=== PATIENT | female | born 1970 | race Caucasian/White ===

== ENCOUNTER → 2019-09-25 13:38 | Outpatient (BNVA) | payer MEDICARE, SELFPAY | PROVIDERS: Family Provider Nurse Practitioner Family; PCP Nurse Practitioner Family; Visit Provider Nurse Practitioner | DX: M54.2 Cervicalgia (principal); M25.511 Pain in right shoulder; M25.512 Pain in left shoulder; F17.210 Nicotine dependence, cigarettes, uncomplicated; Z79.891 Long term (current) use of opiate analgesic | CPT/HCPCS: 99213; 99214 ==

== ENCOUNTER → 2020-01-30 12:50 | Outpatient (BNVA) | payer MEDICARE, SELFPAY | PROVIDERS: Family Provider Nurse Practitioner Family; PCP Nurse Practitioner Family; Visit Provider Nurse Practitioner | DX: G89.29 Other chronic pain (principal); M54.2 Cervicalgia; M25.511 Pain in right shoulder; B02.9 Zoster without complications; F17.210 Nicotine dependence, cigarettes, uncomplicated; Z79.891 Long term (current) use of opiate analgesic | CPT/HCPCS: 99213; 99214 ==

== ENCOUNTER → 2020-02-19 14:24 | Outpatient (BNVA) | payer MEDICARE, SELFPAY | PROVIDERS: Family Provider Nurse Practitioner Family; PCP Nurse Practitioner Family; Referring Provider Nurse Practitioner Family; Visit Provider Orthopaedic Surgery | DX: M25.562 Pain in left knee (principal) | CPT/HCPCS: 73560; 73565 ==

== ENCOUNTER 2020-03-13 10:53 | Outpatient (CLI) | payer MEDICARE, SELFPAY ==
--- NOTE | 2020-03-13 11:00 | MR_ITS ---
WS: [id number] MRI LEFT KNEE NONCONTRAST TECHNIQUE: Axial PD, coronal PD fat sat, coronal PD, sagittal PD, and sagittal PD fat-sat images obta ined. CLINICAL INFORMATION: LEFT KNEE PAIN COMPARISON: None. FINDINGS: ACL is normal in appearance. Normal PCL. Distal quadriceps and patella tendons are intact. Hypertroph ic patella. Medial and lateral meniscus appear normal. Moderate chondromalacia patella. No subchondral edema. Normal medial and lateral patellar retinaculum . Normal medial and lateral collateral ligaments. Normal popliteal fossa. Normal visualized soft tiss ues. No edema in the tibial plateau. Mild joint space narrowing medial and lateral joint compartments . MR/MR knee LT wo con* [id number] IMPRESSION: 1. Normal anterior and posterior cruciate ligaments. 2. Normal medial and lateral meniscus. No acute appearing meniscal tears. 3. Hypertrophic patella with moderate chondromalacia. 4. Mild joint space narrowing involving the medial and lateral joint compartme nts.
== END 2020-03-13 10:54 | disposition home or self-care (01) ==
LOC: RADWPI 10:57
PROVIDERS: Family Provider Nurse Practitioner Family; PCP Nurse Practitioner Family; Visit Provider Orthopaedic Surgery
DX: M25.562 Pain in left knee (principal); M22.42 Chondromalacia patellae, left knee
CPT/HCPCS: 73721

== ENCOUNTER → 2020-04-08 13:51 | Outpatient (BNVA) | payer MEDICARE, SELFPAY | PROVIDERS: Family Provider Nurse Practitioner Family; PCP Nurse Practitioner Family; Visit Provider Anesthesiology | DX: G89.29 Other chronic pain (principal); M47.812 Spondylosis without myelopathy or radiculopathy, cervical region; M25.511 Pain in right shoulder; F17.210 Nicotine dependence, cigarettes, uncomplicated; Z79.891 Long term (current) use of opiate analgesic | CPT/HCPCS: 99213; 99214 ==

== ENCOUNTER → 2020-06-13 08:27 | Outpatient (BNVA) | payer MEDICARE, SELFPAY | PROVIDERS: Family Provider Nurse Practitioner Family; PCP Nurse Practitioner Family; Visit Provider Anesthesiology | DX: G89.29 Other chronic pain (principal); M47.812 Spondylosis without myelopathy or radiculopathy, cervical region; F17.210 Nicotine dependence, cigarettes, uncomplicated; Z79.891 Long term (current) use of opiate analgesic; Z79.1 Long term (current) use of non-steroidal anti-inflammatories (NSAID) | CPT/HCPCS: 99213; 99214 ==

== ENCOUNTER → 2020-08-13 10:57 | Outpatient (BNVA) | payer MEDICARE, SELFPAY | PROVIDERS: Family Provider Nurse Practitioner Family; PCP Nurse Practitioner Family; Visit Provider Anesthesiology | DX: G89.29 Other chronic pain (principal); M47.812 Spondylosis without myelopathy or radiculopathy, cervical region; F17.210 Nicotine dependence, cigarettes, uncomplicated; Z79.1 Long term (current) use of non-steroidal anti-inflammatories (NSAID); Z79.899 Other long term (current) drug therapy; Z79.891 Long term (current) use of opiate analgesic | CPT/HCPCS: 99213; 99214 ==

== ENCOUNTER → 2020-10-16 09:58 | Outpatient (BNVA) | payer MEDICARE, SELFPAY | PROVIDERS: Family Provider Nurse Practitioner Family; PCP Nurse Practitioner Family; Visit Provider Anesthesiology | DX: G89.29 Other chronic pain (principal); M47.812 Spondylosis without myelopathy or radiculopathy, cervical region; M25.511 Pain in right shoulder; M25.512 Pain in left shoulder; M54.5 Low back pain; F17.210 Nicotine dependence, cigarettes, uncomplicated; Z79.891 Long term (current) use of opiate analgesic; Z79.899 Other long term (current) drug therapy | CPT/HCPCS: 99214 ==

== ENCOUNTER 2020-12-09 09:30 | Outpatient (CLI) | payer MEDICARE, SELFPAY ==
--- NOTE | 2020-12-09 09:30 | CT_ITS ---
WS: [id number] CT ABDOMEN PELVIS TECHNIQUE: Contrast-enhanced CT of the abdomen and pelvis with coronal and sagittal reformatted image s. CLINICAL INFORMATION: USPECIFIED ABDOMINAL PAIN, NAUSEA COMPARISON: 07 14,018 DLP: 1101.[address] scans at [facility] use at least one of these dose optimization techniques: automat ed exposure control; mA and/or kV adjustment per patient size (includes targeted exams where dose is matched to clinical indication); or iterative reconstruction. FINDINGS: Postoperative changes hysterectomy and cholecystectomy. Diffuse fatty infiltration of the liver. Port al vein and splenic vein are patent. Normal GE junction. Normal Spleen. Adrenal glands are normal. Ainsley ng bases are well aerated. Normal pancreatic parenchymal enhancement. Adrenal glands are normal. Norm al renal parenchymal enhancement. No hydronephrosis. Small left renal cyst. Diverticulosis. No evidence of acute diverticulitis. Transverse colon constipation. No evidence of hi gh-grade small or large bowel obstruction. Normal caliber abdominal aorta. Aortic calcification. Tiny fat-containing umbilical hernia. No adenopathy in the abdomen or pelvis. No inguinal lymphadenopathy . CT/CT abdomen pelvis w con* [id number] IMPRESSION: 1. Prior postoperative changes hysterectomy and cholecystectomy. 2. Mild diffuse fatty infiltration the liver. 3. Normal renal parenchymal enhancement. No hydronephrosis. 4. Sigmoid diverticulosis. No evidence of acute diverticulitis. 5. Moderate transverse colon constipation. 6. No other significant changes from previous.
[2020-12-09] MEDS: iohexol 300 mg/mL 50 mL Btl PO (10:36)
[2020-12-09] MEDS: iohexol 300 mg/mL 100 mL Btl IV (11:03)
== END 2020-12-09 09:31 | disposition home or self-care (01) ==
PROVIDERS: PCP Nurse Practitioner Family; Visit Provider Nurse Practitioner Family
DX: R10.9 Unspecified abdominal pain (principal); R11.0 Nausea; K59.00 Constipation, unspecified; K57.30 Diverticulosis of large intestine without perforation or abscess without bleeding; K76.0 Fatty (change of) liver, not elsewhere classified
CPT/HCPCS: 74177; Q9967

== ENCOUNTER → 2020-12-17 09:39 | Outpatient (BNVA) | payer MEDICARE, SELFPAY | PROVIDERS: PCP Nurse Practitioner Family; Visit Provider Nurse Practitioner | DX: G89.29 Other chronic pain (principal); M25.511 Pain in right shoulder; M25.512 Pain in left shoulder; M54.5 Low back pain; M47.812 Spondylosis without myelopathy or radiculopathy, cervical region; F17.210 Nicotine dependence, cigarettes, uncomplicated; Z79.1 Long term (current) use of non-steroidal anti-inflammatories (NSAID); Z79.899 Other long term (current) drug therapy; Z79.891 Long term (current) use of opiate analgesic | CPT/HCPCS: 99213; 99214 ==

== ENCOUNTER 2021-01-06 12:35 | Outpatient (CLI) | payer MEDICARE, SELFPAY ==
--- NOTE | 2021-01-06 13:00 | MR_ITS ---
WS: [id number] MRI RIGHT SHOULDER HISTORY: M25.519 - Pain in unspecified shoulder COMPARISON: 04/25/2017 TECHNIQUE: Multiplanar sequences of the shoulder joint are submitted. Status post resection of the distal RIGHT clavicle. There are additional anchors in the humeral head from prior rotator cuff repair. Micrometallic artifact from prior surgery within the soft tissues claudette und the shoulder. Very small amount of fluid in the subacromial and subdeltoid bursa. There is a very small amount of i ncreased T2 signal in the distal supraspinatus tendon similar to the prior study and is probably post operative. No definite tear is identified. No edema within the supraspinatus muscle. There has been a very slight progression of volume loss in the supraspinatus muscle since 2017. No rotator cuff tears are confirmed. There is fraying along the surfaces of the distal rotator cuff tendons. There is part ial subluxation of the biceps tendon. Similar to the prior study. Cortical irregularity and loss of t he cartilage surrounding the humeral head. No definite labral tears. MR/MR shoulder RT wo con* [id number] IMPRESSION: 1. Prior rotator cuff repair and resection of the distal RIGHT clavicle. 2. Increased signal is unchanged in the distal supraspinatus tendon. This is p robably postsurgical. 3. There is been a very slight progression of atrophy in the supraspinatus mus purvi since 2017. 4. Very small amount of fluid in the subacromial subdeltoid bursa. 5. No labral tear. 6. Partial subluxation biceps tendon.
== END 2021-01-06 12:36 | disposition home or self-care (01) ==
LOC: RADSHAW 12:39
PROVIDERS: PCP Nurse Practitioner Family; Visit Provider Nurse Practitioner
DX: M25.511 Pain in right shoulder (principal); S43.081A Other subluxation of right shoulder joint, initial encounter; X58.XXXA Exposure to other specified factors, initial encounter
CPT/HCPCS: 73221

== ENCOUNTER → 2021-02-12 10:20 | Outpatient (BNVA) | payer MEDICARE, SELFPAY | PROVIDERS: PCP Nurse Practitioner Family; Visit Provider Nurse Practitioner | DX: G89.29 Other chronic pain (principal); M47.812 Spondylosis without myelopathy or radiculopathy, cervical region; M75.01 Adhesive capsulitis of right shoulder; M54.5 Low back pain; M25.552 Pain in left hip; F17.210 Nicotine dependence, cigarettes, uncomplicated; Z79.1 Long term (current) use of non-steroidal anti-inflammatories (NSAID); Z79.899 Other long term (current) drug therapy; Z79.891 Long term (current) use of opiate analgesic; Z71.6 Tobacco abuse counseling | CPT/HCPCS: 99214 ==

== ENCOUNTER → 2021-02-18 14:45 | Outpatient (BNVA) | payer MEDICARE, SELFPAY | PROVIDERS: PCP Nurse Practitioner Family; Visit Provider Anesthesiology Pain Medicine | DX: M75.01 Adhesive capsulitis of right shoulder (principal); Z79.899 Other long term (current) drug therapy; Z79.891 Long term (current) use of opiate analgesic; F17.210 Nicotine dependence, cigarettes, uncomplicated | CPT/HCPCS: 20610; J1030; J3490 ==

== ENCOUNTER → 2021-04-16 10:42 | Outpatient (BNVA) | payer MEDICARE, SELFPAY | PROVIDERS: PCP Nurse Practitioner Family; Visit Provider Nurse Practitioner | DX: G89.29 Other chronic pain (principal); M47.812 Spondylosis without myelopathy or radiculopathy, cervical region; M75.01 Adhesive capsulitis of right shoulder; M54.5 Low back pain; F17.210 Nicotine dependence, cigarettes, uncomplicated; Z79.891 Long term (current) use of opiate analgesic; Z71.6 Tobacco abuse counseling | CPT/HCPCS: 99214 ==

== ENCOUNTER → 2021-05-15 10:46 | Outpatient (BNVA) | payer MEDICARE, SELFPAY | PROVIDERS: PCP Nurse Practitioner Family; Visit Provider Nurse Practitioner | DX: G89.29 Other chronic pain (principal); M75.01 Adhesive capsulitis of right shoulder; M25.512 Pain in left shoulder; M47.812 Spondylosis without myelopathy or radiculopathy, cervical region; M54.5 Low back pain; F17.210 Nicotine dependence, cigarettes, uncomplicated; Z79.1 Long term (current) use of non-steroidal anti-inflammatories (NSAID); Z79.891 Long term (current) use of opiate analgesic; Z71.6 Tobacco abuse counseling | CPT/HCPCS: 99214 ==

== ENCOUNTER 2021-06-09 15:21 | Outpatient (CLI) | payer MEDICARE, SELFPAY ==
--- NOTE | 2021-06-09 15:15 | MR_ITS ---
WS: [id number] MRI RIGHT SHOULDER HISTORY: M75.01 - Adhesive capsulitis of right shoulder COMPARISON: 01/06/2021 TECHNIQUE: Multiplanar sequences of the shoulder joint are submitted. Status post rotator cuff repair. Tendon anchors are present in the humeral head. Prior resection of t he distal clavicle. Very small amount of fluid in the subacromial and subdeltoid bursa which can be s een postsurgical. There is also a 4 mm ovoid nodule of decreased signal on all sequences over the dis ruchi rotator cuff consistent with calcific tendinitis. No os acromion. Biceps tendon is not identified in the bicipital groove. Numerous micrometallic postsurgical artifacts are noted in the soft tissues surrounding the shoulder. Mildly high riding humeral head with mild glenohumeral joint narrowing and loss of cartilage. Axillar y pouch is not thickened. Coracohumeral ligament is minimally thickened. Not significantly changed si nce the prior examinations. Persistent increased signal in the distal supraspinatus tendon. Thinning of the tendon. Increased sig nal extends through the tendon. This could be postsurgical or full-thickness tear. There is no retrac tion of the tendon. Mild atrophy of the supraspinatus muscle similar to the prior study. No edema add itional tendon abnormalities. There is mild encroachment upon the subscapularis tendon second narrowi ng of the coracohumeral distance. MR/MR shoulder RT wo con* [id number] IMPRESSION: 1. Status post prior tendon repair. Multiple tendon anchors are present in the humeral head. 2. Mild progression of the increased signal in the distal supraspinatus. Signa l extends through the tendon. This could be postsurgical or full-thickness smal l tendon tear. Mild progression since the prior study. No tendon retraction or progression of mild supraspinatus atrophy. 3. Biceps tendon not located within the bicipital groove. Torn or subluxed bic eps tendon. 4. Focal calcific tendinitis. 5. Mildly high riding humeral head with mild to moderate degenerative changes at the glenohumeral joint. 6. Coracohumeral ligament is normal.
== END 2021-06-09 15:22 | disposition home or self-care (01) ==
LOC: RADSHAW 15:29
PROVIDERS: PCP Nurse Practitioner Family; Visit Provider Nurse Practitioner
DX: M75.01 Adhesive capsulitis of right shoulder (principal)
CPT/HCPCS: 73221

== ENCOUNTER → 2021-07-16 10:33 | Outpatient (BNVA) | payer MEDICARE, SELFPAY | PROVIDERS: PCP Nurse Practitioner Family; Visit Provider Anesthesiology | DX: G89.29 Other chronic pain (principal); M54.2 Cervicalgia; M47.812 Spondylosis without myelopathy or radiculopathy, cervical region; M75.01 Adhesive capsulitis of right shoulder; M25.512 Pain in left shoulder; F17.200 Nicotine dependence, unspecified, uncomplicated; Z79.891 Long term (current) use of opiate analgesic; Z79.899 Other long term (current) drug therapy | CPT/HCPCS: 99214 ==

== ENCOUNTER → 2021-09-11 09:40 | Outpatient (BNVA) | payer MEDICARE, SELFPAY | PROVIDERS: PCP Nurse Practitioner Family; Visit Provider Anesthesiology | DX: G89.29 Other chronic pain (principal); M54.50 Low back pain, unspecified; M47.812 Spondylosis without myelopathy or radiculopathy, cervical region; M75.01 Adhesive capsulitis of right shoulder; F17.210 Nicotine dependence, cigarettes, uncomplicated; Z79.891 Long term (current) use of opiate analgesic; Z79.899 Other long term (current) drug therapy | CPT/HCPCS: 99214 ==

== ENCOUNTER 2022-01-18 14:01 | Outpatient (CLI) | payer MEDICARE, SELFPAY ==
--- NOTE | 2022-01-18 14:08 | MM_ITS ---
WS: [id number] BILATERAL 3D TOMOSYNTHESIS DIGITAL SCREENING MAMMOGRAPHY WITH CAD CLINICAL INFORMATION: SCREENING HISTORY: Screening mammogram. No current complaints. COMPARISON: July 01, 2026 TECHNIQUE: Bilateral CC and MLO views. FINDINGS: Scattered fibroglandular densities bilaterally. Nodular breast tissue subareolar RIGHT breast is unch anged. Incidental punctate calcifications. Vascular calcification. New 5 mm ovoid nodule along the po sterior nipple line LEFT breast appears new from previous. This is best seen on the MLO view. Recomme nd spot diagnostic mammography and ultrasound for further evaluation. RIGHT breast is unchanged and unremarkable. MM/[place] [id number] IMPRESSION: BI-RADS: 0-Incomplete: Need additional imaging evaluation FOLLOW UP: Need Additional Imaging Recommend LEFT breast diagnostic mammography with spot compression views and ul trasound.
== END 2022-01-18 14:02 | disposition home or self-care (01) ==
LOC: RAD 14:04
PROVIDERS: PCP Nurse Practitioner Family; Visit Provider Nurse Practitioner Family
DX: Z12.31 Encounter for screening mammogram for malignant neoplasm of breast (principal)
CPT/HCPCS: 77063; 77067

== ENCOUNTER 2022-02-22 08:21 | Outpatient (CLI) | payer MEDICARE, SELFPAY ==
--- NOTE | 2022-02-22 08:35 | MM_ITS ---
WS: [id number] LEFT 3D TOMOSYNTHESIS DIGITAL MAMMOGRAPHY WITH CAD CLINICAL INFORMATION: LT BREAST LUMP COMPARISON: January 18, 2022 TECHNIQUE: 3 views of the left breast were obtained. FINDINGS: Scattered fibroglandular densities of the left breast. Again seen is the 5 mm asymmetric density paul g the posterior nipple line LEFT breast near the 12:00 position. Ultrasound is pending. ULTRASOUND BREAST LEFT TECHNIQUE: Ultrasound left breast focused area of concern. CLINICAL INFORMATION: LT BREAST LUMP COMPARISON: None. FINDINGS: Ultrasound LEFT breast at the 11 to 1:00 position. A few areas incidental ductal ectasia. Normal unde rlying parenchymal tissue. No suspicious lesions. No lesions to target for biopsy.. MM/MM tomosynthesis diag [id number] IMPRESSION: BI-RADS: 2-Benign FOLLOW UP: 1 Year Follow-up Recommend return to annual screening mammography.
== END 2022-02-22 08:22 | disposition home or self-care (01) ==
PROVIDERS: PCP Nurse Practitioner Family; Visit Provider Nurse Practitioner Family
DX: N63.25 Unspecified lump in the left breast, overlapping quadrants
CPT/HCPCS: 76642; 77061

== ENCOUNTER 2023-05-24 09:50 | Outpatient (CLI) | payer MEDICARE, MEDICAID, SELFPAY ==
--- NOTE | 2023-05-24 10:07 | IR_ITS ---
WS: [email or web address] SHOULDER ARTHROGRAM RIGHT Fluoroscopic guided right shoulder arthrogram CLINICAL INFORMATION: R SHOULDER PAIN/EVAL CUFF COMPARISON: None. PROCEDURE: The procedure including risks, benefits and complications were discussed with the patient, who agreed to proceed. Using sterile technique, the patient was prepped and draped in the usual ster ile fashion. After 1% lidocaine injection using fluoroscopic guidance, a 22-gauge spinal needle was a dvanced into the glenohumeral joint. Approximately 13 ml of a solution containing 15 ml normal saline , 5 ml Omnipaque 240, and 0.1 ml gadolinium was administered. No immediate complications. FLUOROSCOPY TIME: 1min [id number] # of spot films: 4 IMPRESSION: Uncomplicated fluoroscopic-guided right shoulder arthrogram. MRI to follow.
--- NOTE | 2023-05-24 10:07 | MR_ITS ---
WS: [email or web address] EXAMINATION: MR RIGHT shoulder arthrogram ORDER DATE: 05/24/2023 10:15 AM COMPARISON: MRI 06/09/2021 HISTORY: R SHOULDER PAIN,EVAL CUFF TECHNIQUE: Coronal T1, coronal PD, coronal T2 fat-sat imaging. Sagittal PD, sagittal T2, fat-sat axia l PD and axial T2 imaging . RIGHT shoulder arthrogram post intra-articular administration of gadolini um mixture. Coronal T1 axial and T1 sagittal T1 images with fat saturation technique. FINDINGS: PRE-ARTHROGRAM IMAGING Previous postoperative changes rotator cuff repair with multiple tendon anchors in the humeral head. Previous resection of the distal clavicle. Evidence of calcific tendinitis with decreased signal in t he distal rotator cuff. Susceptibility artifact due to surgical clips in the RIGHT shoulder soft tiss ues. Biceps tendon absent from the bicipital groove unchanged from previous. Again seen is persistent inc reased T2 signal normality in the distal supraspinatus tendon with chronic thinning. This is similar to the prior examination. No tendon retraction. Infraspinatus appears intact. Normal teres minor. Sub scapularis appears intact. Narrowing of the subacromial space with prior resection of the distal clavicle. Trace subacromial flu id. POST ARTHROGRAM IMAGES Post arthrogram images demonstrate partial thickness tiny tear involving the distal posterior suprasp inatus and anterior infraspinatus fibers with dissecting gadolinium into the superficial fibers. No t endon retraction. Rotator cuff is otherwise intact. Small tear involving the anterior superior glenoi d labrum with anterior posterior extension. This is likely chronic. Biceps tendon remains absent from the bicipital groove. Somewhat diminutive shoulder capsule can be seen with adhesive capsulitis in the appropriate clinical setting. IMPRESSION: 1. Evidence of multiple prior rotator cuff repairs with tendon anchors in the humeral head. 2. Similar-appearing increased T2 signal normality in the distal supraspinatus with chronic thinning . No evidence of tendon retraction 3. Tiny high-grade partial tear involving the distal posterior supraspinatus and anterior infraspina tus with gadolinium dissecting into the superficial tendon fibers No tendon retraction. 4. Rotator cuff is otherwise intact. 5. Degenerative fraying of the glenoid labrum with small anterior superior labral tear with anterior posterior extension. This is likely chronic. 6. Biceps tendon is absent from the bicipital groove. This may be due to prior surgery with arthrode sis. 7. Prior resection of the distal clavicle with narrowing of the subacromial space. 8. Visually small shoulder capsule can be seen with adhesive capsulitis in the appropriate clinical setting.
== END 2023-05-24 09:51 | disposition home or self-care (01) ==
PROVIDERS: PCP Nurse Practitioner Family; Visit Provider Orthopaedic Surgery
DX: M75.111 Incomplete rotator cuff tear or rupture of right shoulder, not specified as traumatic (principal); Z98.890 Other specified postprocedural states
CPT/HCPCS: 23350; 73223; 77002; A9577; Q9966

== ENCOUNTER 2023-10-31 07:26 | Outpatient (CLI) | payer BC, MEDICAID, SELFPAY ==
--- NOTE | 2023-10-31 07:44 | MR_ITS ---
WS: [id number] MRI CERVICAL SPINE NONCONTRAST HISTORY: CERVICAL SPONDYLOSIS W/RADICULOPATHY COMPARISON: None available. Technique: Multiplanar, multisequence noncontrast imaging of the cervical spine. Straightening with reversal and curvature of the cervical spine. Signal within the cervical cord is normal. Visualized posterior fossa is unremarkable. Craniocervical junction, C1 and C2 relationship, odontoid process and soft tissues are normal. C2-C3: Small LEFT foraminal osteophytes. Mild LEFT foraminal stenosis. C3-C4: Moderate osteophytic ridging extending into the LEFT foramen. Posterior displacement of the ne rve roots in the LEFT foramen. Mild to moderate LEFT foraminal stenosis. C4-C5: Mild osteophytic ridging. No stenosis. C5-C6: Mild annular disc bulging and osteophytic ridging. There is mild encroachment upon the ventral thecal sac and foramina but no high-grade stenosis. Mild bilateral facet arthritis. C6-C7: Mild osteophytic ridging and annular disc bulging. LEFT paracentral and foraminal disc osteoph yte complex. There is mild encroachment upon the ventral thecal sac. Bilateral mild facet arthritis. Very mild central and bilateral foraminal stenosis. C7-T1: Mild osteophytic ridging. No stenosis. Mildly prominent soft tissues in the C7-T1 foramina and extraforaminal seen best on the axial imaging. The exiting nerve root appears slightly prominent and bulbous., Best seen on image 69 of series 803. On the sagittal imaging the nerve root also appears t hickened and enlarged compared to the adjacent nerve roots. This would be the C8 nerve root on the RI GHT. Remaining paraspinal soft tissues are negative. IMPRESSION: 1. Very slightly abnormal appearance to the RIGHT C8 nerve root as compared to the adjacent nerve ro ots and the LEFT C8 nerve root. Nerve root is enlarged and mildly heterogeneous. Differential include s neuritis and nerve sheath tumor such as a schwannoma. Recommend follow-up MRI cervical spine with c ontrast. Attention should be directed to the C8 nerve root to ensure there is adequate imaging of thi s level. 2. C2-3: Mild LEFT foraminal stenosis due to osteophyte. 3. C3-4: Mild to moderate LEFT foraminal stenosis due to osteophytes. 4. C6-7: LEFT paracentral and foraminal disc osteophyte complex mild central and bilateral foraminal stenosis. 5. C7-T1: No central stenosis.
== END 2023-10-31 07:27 | disposition home or self-care (01) ==
LOC: RAD 07:27
PROVIDERS: PCP Nurse Practitioner Family; Visit Provider General Practice
DX: M47.22 Other spondylosis with radiculopathy, cervical region (principal); M48.02 Spinal stenosis, cervical region; M25.78 Osteophyte, vertebrae
CPT/HCPCS: 72141

== ENCOUNTER 2024-01-04 09:50 | Outpatient (CLI) | payer BC, MEDICAID, SELFPAY ==
--- NOTE | 2024-01-04 10:00 | MM_ITS ---
WS: [email or web address] BILATERAL SCREENING DIGITAL TOMOSYNTHESIS MAMMOGRAM WITH CAD HISTORY: SCREENING COMPARISON: 02/22/2022, 01/18/2022, 07/01/2020 Bilateral CC and MLO views with tomosynthesis and synthetic mammography submitted. Computer aided det ection analyzed. Breast composition: There are scattered areas of fibroglandular density. No suspicious masses, microc alcifications or architectural distortion. There are a few scattered stable masses which are probably lymph nodes. A few small benign calcifications within each breast. MM/[place] [id number] IMPRESSION: BI-RADS: 2-Benign FOLLOW UP: 1 Year Follow-up
== END 2024-01-04 09:51 | disposition home or self-care (01) ==
LOC: MOBLMAM 09:55
PROVIDERS: PCP Nurse Practitioner Family; Visit Provider Nurse Practitioner Family
DX: Z12.31 Encounter for screening mammogram for malignant neoplasm of breast (principal)
CPT/HCPCS: 77063; 77067

== ENCOUNTER 2024-01-09 13:22 | Outpatient (CLI) | payer BC, MEDICAID, SELFPAY ==
--- NOTE | 2024-01-09 13:29 | MR_ITS ---
WS: [email or web address] MRI CERVICAL SPINE with and without contrast HISTORY: CERVICAL SPONDYLOSIS W/RADICULOPATHY COMPARISON: 10/31/2023 Technique: Multiplanar, multisequence noncontrast imaging of the cervical spine. Pre and postcontrast imaging. MultiHance 17 mL. Straightening and reversal of the normal cervical lordosis. Reversal centered at the C6-7 level. Disc desiccation. Signal within the cervical cord is normal. Visualized posterior fossa is unremarkable. Craniocervical junction, C1 and C2 relationship, odontoid process and soft tissues are normal. C2-C3: Very small LEFT foraminal osteophytes with minimal narrowing. C3-C4: Moderate osteophytic ridging extending into the LEFT foramen. Posterior displacement of the ne rve roots on the LEFT. Mild to moderate LEFT foraminal stenosis. C4-C5: Mild diffuse osteophytic ridging and facet arthritis. C5-C6: Diffuse annular disc bulging with facet arthritis. Small foraminal osteophytes. Minimal encroa chment upon the foramina and central canal. No high-grade stenosis. C6-C7: Diffuse annular disc bulging with a central to LEFT paracentral disc protrusion. Osteophytic r idging and facet arthritis. Mild central and bilateral foraminal stenosis. C7-T1: Osteophytic ridging. No stenosis. There is no enhancing mass or schwannoma identified in the RIGHT C7-T1 foramina. Previously described soft tissue thickening persists but appears normal without a masslike enhancement. This is probably a normal appearance for this nerve root. No discitis or osteomyelitis. MR/MR cervical spine wo/w [id number] IMPRESSION: 1. No enhancing mass associated with the C7-T1 foramina as previously suspecte d on the prior MRI of 10/31/2023. There is no enhancement. The nerve root appears slightly greater in size than the LEFT nerve root which is probably normal stormy iation. 2. C3-4: Osteophytic ridging causing mild to moderate LEFT foraminal narrowing . 3. C6-7: Central to LEFT paracentral disc protrusion and foraminal osteophytes . Mild central and bilateral foraminal stenosis unchanged. 4. Reversal of the normal cervical lordosis centered at C6-7.
[2024-01-09] MEDS: gadobenate dimeglumine 20 mL vial IV (14:15)
== END 2024-01-09 13:23 | disposition home or self-care (01) ==
LOC: RAD 13:22
PROVIDERS: PCP Nurse Practitioner Family; Visit Provider Nurse Practitioner Family
DX: M47.22 Other spondylosis with radiculopathy, cervical region (principal); M50.123 Cervical disc disorder at C6-C7 level with radiculopathy; M48.02 Spinal stenosis, cervical region
CPT/HCPCS: 72156; A9577

== ENCOUNTER 2024-01-25 05:54 | Day surgery (SDC) | payer BC, MEDICAID, SELFPAY ==
[2024-01-25 06:05] VITALS: BMI 28.3
[2024-01-25 06:11] VITALS: BP 148/80; PULSE 83; RESP 18; TEMP 36.4; O2SAT 96
[2024-01-25] MEDS: sodium chloride 0.9% 1,000 ML 30 ML IV (06:15)
--- NOTE | 2024-01-25 06:28 | ANES.PREANE2 ---
Pre-Anesthetic Assessment Height/Weight: Height 1.7 m Weight 82.1 kg Temp Pulse Resp BP Pulse Ox O2 Del Method 97.5 F L 83 18 148/80 96 Room Air 01/25/24 06:11 01/25/24 06:11 01/25/24 06:11 01/25/24 06:11 01/25/24 06:11 01/25/24 06:11 Operation Date: 01/25/24 07:00 Proposed Procedures p EGD 63371, 14283, G0105,Z12.11, K21.9,Z80.010,Z86.010(Not Applicable) - Ari Simon DO s Colonoscopy(Not Applicable) - Ari Simon DO Familial anesthetic complications: None Was Beta Shefali taken within 24 hours: N/A Was Clonidine taken within 24 hours: N/A Last intake: Intake Last Liquid Date 01/24/24 Last Liquid Time 21:30 Last Solid Date 01/23/24 Last Solid Time 18:00 Social Tobacco and No alcohol 1 pack(s) per day >20 pack years Exam alert, oriented x 3, clear to auscultation bilaterally and regular rate & rhythm Airway Submandibular: within normal limits (TMJ) Cervical ROM: within normal limits Mallampati: Class II Dentition: false History/ROS No significant history except as noted and No significant complaints Pulmonary Chronic Obstructive Pulmonary Disease, Cough, Exertional Dyspnea and Sleep Apnea CV/HEM Coronary Artery Disease None reported Hepatic None reported GI Gastroesophageal Reflux Disease (None this morning, controlled with meds) Metabolic Hyperlipidemia Musc/skel Right shoulder pain, 3 surgeries to right shoulder Neuropsych Anxiety, Depression, Headache (Migraines) and Neuropathy Anesthetic Plan ASA status: 3 Anesthesia: Anesthesia Evaluation, General and MAC Risk of > 500 ml blood loss (7ml/kg in children): No Medications/Allergies Home Medications Medication Instructions Recorded Confirmed Last Taken Type albuterol sulfate 90 mcg/actuation 2 puff inhalation Q6H PRN 09/24/19 01/19/24 01/24/24 History aerosol inhaler (ProAir HFA) Shortness Of Breath Or Wheezing ipratropium 0.5 mg-albuterol 3 mg 3 ml inhalation TID PRN Shortness 09/24/19 01/19/24 01/19/24 History (2.5 mg base)/3 mL nebulization Of Breath Or Wheezing soln estradiol 0.5 mg tablet 0.75 mg PO QDAY 09/25/19 01/19/24 01/24/24 History trazodone 100 mg tablet 100 - 200 mg PO .Q HS 09/25/19 01/19/24 01/23/24 History budesonide 160 mcg-glycopyr 9 2 inh inhalation BID 04/16/21 01/19/24 01/25/24 03:00 History mcg-formot 4.8 mcg/actuation HFA inhaler (Breztri Aerosphere) montelukast 10 mg tablet 10 mg PO BEDTIME 04/16/21 01/19/24 01/23/24 History aripiprazole 5 mg tablet (Abilify) 5 mg PO DAILY 09/11/21 01/19/24 01/24/24 History cyclobenzaprine 10 mg tablet 10 mg PO TID PRN muscle spasm #90 09/11/21 01/19/24 01/24/24 Rx tabs escitalopram oxalate 10 mg tablet 10 mg PO DAILY 09/11/21 01/19/24 01/24/24 History (Lexapro) ezetimibe 10 mg tablet 10 mg PO DAILY 01/19/24 01/19/24 01/24/24 History fenofibrate nanocrystallized 145 145 mg PO DAILY 01/19/24 01/19/24 01/24/24 History mg tablet hydrocodone 10 mg-acetaminophen 1 tab PO QID PRN pain 01/19/24 01/19/24 01/24/24 History 325 mg tablet Allergies Allergy/AdvReac Type Severity Reaction Status Date / Time oxycodone Allergy DIFFICULTY Verified 12/19/23 15:27 BREATHING Sulfa (Sulfonamide Allergy ADR-Nausea Verified 01/19/24 08:52 Antibiotics) baclofen AdvReac MUSCLE Verified 12/19/23 15:27 CRAMPS morphine AdvReac ITCHING Verified 12/19/23 15:27 procaine [From Novocain] AdvReac ELEVATED Verified 12/19/23 15:27 FEVER sulfamethoxazole AdvReac NAUSEA Verified 12/19/23 15:27 [From Bactrim] trimethoprim [From Bactrim] AdvReac NAUSEA Verified 12/19/23 15:27 [facility] Anesthesia Medical History (Updated 12/19/23 @ 17:38 by Ari Simon DO) History of colon polyps Family history of colon cancer Chronic low back pain Encounter for long-term (current) use of NSAIDs Encounter for long-term opiate analgesic use Opioid contract exists Long-term use of high-risk medication Chronic shoulder pain Chronic neck pain Tobacco use disorder Surgical History Hx of shoulder surgery (~2011) RIGHT SHOULDER SURGERY IN 2011 History of carpal tunnel surgery of right wrist (~2002) Hx of hysterectomy ABD. Hx of cholecystectomy Family History Father Cancer COLON Mother Cancer LUNG Family/Other Cancer PATERNAL AUNT - ESOPHAGEAL Other Diabetes Denies family history of Anesthesia complication Bleeding disorder Social History Smoking and tobacco/nicotine status: current every day tobacco/nicotine user cigarettes Packs smoked per day: 1 Alcohol intake: never Substance/Drug Use: never Household members: spouse Marital status: Current occupational status: disabled Data Anesthesia Cardiac Studies: No Data to Display
--- NOTE | 2024-01-25 06:33 | PM.HP ---
Providers/Chief Complaint Primary Care Provider: JUAN ALBERTO Sosa Chief Complaint: Z12.11 History of Present Illness Gay Babb is a 53 year old female Review of Systems General: Reports: 10 or more systems reviewed and unremarkable except in HPI and below Medications/Allergies Home Medications Medication Instructions Recorded Confirmed Last Taken Type albuterol sulfate 90 mcg/actuation 2 puff inhalation Q6H PRN 09/24/19 01/19/24 01/24/24 History aerosol inhaler (ProAir HFA) Shortness Of Breath Or Wheezing ipratropium 0.5 mg-albuterol 3 mg 3 ml inhalation TID PRN Shortness 09/24/19 01/19/24 01/19/24 History (2.5 mg base)/3 mL nebulization Of Breath Or Wheezing soln estradiol 0.5 mg tablet 0.75 mg PO QDAY 09/25/19 01/19/24 01/24/24 History trazodone 100 mg tablet 100 - 200 mg PO .Q HS 09/25/19 01/19/24 01/23/24 History budesonide 160 mcg-glycopyr 9 2 inh inhalation BID 04/16/21 01/19/24 01/25/24 03:00 History mcg-formot 4.8 mcg/actuation HFA inhaler (Breztri Aerosphere) montelukast 10 mg tablet 10 mg PO BEDTIME 04/16/21 01/19/24 01/23/24 History aripiprazole 5 mg tablet (Abilify) 5 mg PO DAILY 09/11/21 01/19/24 01/24/24 History cyclobenzaprine 10 mg tablet 10 mg PO TID PRN muscle spasm #90 09/11/21 01/19/24 01/24/24 Rx tabs escitalopram oxalate 10 mg tablet 10 mg PO DAILY 09/11/21 01/19/24 01/24/24 History (Lexapro) ezetimibe 10 mg tablet 10 mg PO DAILY 01/19/24 01/19/24 01/24/24 History fenofibrate nanocrystallized 145 145 mg PO DAILY 01/19/24 01/19/24 01/24/24 History mg tablet hydrocodone 10 mg-acetaminophen 1 tab PO QID PRN pain 01/19/24 01/19/24 01/24/24 History 325 mg tablet Allergies Allergy/AdvReac Type Severity Reaction Status Date / Time oxycodone Allergy DIFFICULTY Verified 12/19/23 15:27 BREATHING Sulfa (Sulfonamide Allergy ADR-Nausea Verified 01/19/24 08:52 Antibiotics) baclofen AdvReac MUSCLE Verified 12/19/23 15:27 CRAMPS morphine AdvReac ITCHING Verified 12/19/23 15:27 procaine [From Novocain] AdvReac ELEVATED Verified 12/19/23 15:27 FEVER sulfamethoxazole AdvReac NAUSEA Verified 12/19/23 15:27 [From Bactrim] trimethoprim [From Bactrim] AdvReac NAUSEA Verified 12/19/23 15:27 PFSH Acute PFSH: Medical History (Updated 12/19/23 @ 17:38 by Ari Simon DO) History of colon polyps Family history of colon cancer Chronic low back pain Encounter for long-term (current) use of NSAIDs Encounter for long-term opiate analgesic use Opioid contract exists Long-term use of high-risk medication Chronic shoulder pain Chronic neck pain Tobacco use disorder Surgical History Hx of shoulder surgery (~2011) RIGHT SHOULDER SURGERY IN 2011 History of carpal tunnel surgery of right wrist (~2002) Hx of hysterectomy ABD. Hx of cholecystectomy Family History Father Cancer COLON Mother Cancer LUNG Family/Other Cancer PATERNAL AUNT - ESOPHAGEAL Other Diabetes Denies family history of Anesthesia complication Bleeding disorder Social History Smoking and tobacco/nicotine status: current every day tobacco/nicotine user cigarettes Packs smoked per day: 1 Alcohol intake: never Substance/Drug Use: never Household members: spouse Marital status: Current occupational status: disabled Vitals/I&O/Wt Last Vital Signs Temp 97.5 F L 01/25/24 06:11 Pulse 83 01/25/24 06:11 Resp 18 01/25/24 06:11 BP 148/80 01/25/24 06:11 Pulse Ox 96 01/25/24 06:11 O2 Del Method Room Air 01/25/24 06:11 Weight last 48 hrs Weight 181 lb A&P Assessment and plan (1) GERD (gastroesophageal reflux disease): (2) Family history of colon cancer: (3) History of colon polyps: Plan EGD Screening colonoscopy Attestations Medical Necessity Statement*: HOME Coding Level of Care Code Acute Code for Chg Fwd Diagnoses GERD (gastroesophageal reflux disease) K21.9 Family history of colon cancer Z80.0 History of colon polyps Z86.010
[2024-01-25 07:26] VITALS: BP 126/74; PULSE 73; RESP 16; TEMP 36.1; O2SAT 94
[2024-01-25 07:44] VITALS: BP 101/71; PULSE 72; RESP 18; O2SAT 96
--- NOTE | 2024-01-25 07:50 | ANE.PACU2 ---
Inpatient post-anesthesia follow up: Airway intact: Yes Vital signs: Temperature 97 F Pulse Rate 72 Respiratory Rate 18 Blood Pressure 101/71 Pulse Oximetry 96 Oxygen Delivery Me thod Room Air Oxygen Flow Rate Fraction of Inspir ed Oxygen Hydration adequate: Yes Nausea and vomiting: No Pain level: 1 Mental status: Baseline
== END 2024-01-25 07:53 | disposition home or self-care (01) ==
PROVIDERS: PCP Nurse Practitioner Family; Visit Provider Surgery
PROC: 0DJ08ZZ Inspection of Upper Intestinal Tract, Via Natural or Artificial Opening Endoscopic (ICD-10-PCS; CPT 43235; principal; 2024-01-25 07:00)
PROC: 0DJD8ZZ Inspection of Lower Intestinal Tract, Via Natural or Artificial Opening Endoscopic (ICD-10-PCS; CPT 45378; 2024-01-25 07:00)
DX: Z12.11 Encounter for screening for malignant neoplasm of colon (principal); Z86.010 Personal history of colon polyps; F17.210 Nicotine dependence, cigarettes, uncomplicated; Z80.0 Family history of malignant neoplasm of digestive organs; D12.3 Benign neoplasm of transverse colon; K29.50 Unspecified chronic gastritis without bleeding; I25.10 Atherosclerotic heart disease of native coronary artery without angina pectoris; E78.5 Hyperlipidemia, unspecified
CPT/HCPCS: 43239; 45385; 88305; J2704; J7030